=== PATIENT | male | born 1960 | race African-American/Black ===

== ENCOUNTER 2020-04-02 15:06 | Emergency (ER) | payer OTHER ==
[~2020-04-02] VITALS: Ht 165.1 cm; Wt 77.3 kg
[2020-04-02] MEDS ORDERED: LISI-662 PO (15:09)
[2020-04-02] MEDS ORDERED: ASPI-728 PO (15:09)
[2020-04-02] MEDS ORDERED: LIDOCAINE 5% TRANSDERMAL PATCH TD ONE (15:30)
[2020-04-02 16:38] VITALS: BP 127/79
== END 2020-04-02 16:42 | disposition home or self-care (01) ==
LOC: EMS 15:08
DX: M54.5 Low back pain (principal); I10 Essential (primary) hypertension; V89.2XXA Person injured in unspecified motor-vehicle accident, traffic, initial encounter; Y93.89 Activity, other specified; Y92.488 Other paved roadways as the place of occurrence of the external cause; Y99.8 Other external cause status
CPT/HCPCS: 72100

== ENCOUNTER 2021-11-12 19:35 | Emergency (ER) | payer OTHER ==
[~2021-11-12] VITALS: Ht 165.1 cm; Wt 72.7 kg
[~2021-11-12 19:35] MED LIST: ASPI-1450 PO; LISI-894 PO
[2021-11-12 20:25] LABS: BASOPHILS % (AUTO) 1.5 % (0.0-2.0); EOSINOPHILS % (AUTO) 0.7 % (1.0-6.0); HEMATOCRIT 37.6 % (41-53); HEMOGLOBIN 13.1 g/dL (13.5-17.5); LYMPHOCYTES # (AUTO) 1.3 K/uL (1.0-4.8); LYMPHOCYTES % (AUTO) 37.7 % (22.0-44.0); MEAN CORPUSCULAR HGB CONC 34.9 G/dL (31.0-37.0); MEAN CORPUSCULAR VOLUME 92 fL (80-100); MONOCYTES # (AUTO) 0.2 K/uL (0.1-1.0); MONOCYTES % (AUTO) 6.4 % (2.0-9.0); NEUTROPHILS # (AUTO) 1.8 K/uL (1.8-7.7); NEUTROPHILS % (AUTO) 53.7 % (40.0-70.0); PLATELET COUNT (AUTO) 190 K/uL (150-450); RED BLOOD CELL COUNT(AUTO) 4.09 MIL/uL (4.50-5.90); RED CELL DISTRIBUTION WIDTH 13.9 % (11.5-14.5)
[2021-11-12 20:29] LABS: ANION GAP 14 mmol/L (8-16); CALCIUM, TOTAL 8.9 mg/dL (8.8-10.5); CARBON DIOXIDE 25 mmol/L (22-29); CHLORIDE 105 mmol/L (98-107); CREATININE 0.91 mg/dL (0.60-1.30); GLOMERULAR FILTR. RATE CALC > 60 mL/min (>60); GLUCOSE,RANDOM 112 mg/dL (70-110); POTASSIUM 3.5 mmol/L (3.5-5.1); SODIUM SERUM 144 mmol/L (136-145); UREA NITROGEN, BLOOD 14 mg/dL (7-18)
[2021-11-12 20:33] LABS: INR 1.2 (0.9-1.1); PROTHROMBIN TIME 12.4 SEC (9.4-11.6)
[2021-11-12 20:34] LABS: ALANINE AMINOTRANSFERASE 119 U/L (12-78); ALBUMIN 4.4 g/dL (3.4-5.0); ALKALINE PHOSPHATASE 75 U/L (46-116); ASPARTATE AMINOTRANSFERASE 83 U/L (15-37); BILIRUBIN,TOTAL 4.3 mg/dL (0.1-1.0); TOTAL PROTEIN, SERUM 7.8 g/dL (6.4-8.2)
[2021-11-12 20:38] LABS: APPEARANCE,URINE CLEAR (CLEAR); BILIRUBIN,URINE NEGATIVE (NEGATIVE); GLUCOSE, URINE (UA) NEGATIVE (NEGATIVE); KETONES,URINE NEGATIVE (NEGATIVE); LEUKOCYTE ESTERASE ,URINE NEGATIVE (NEGATIVE); NITRATE,URINE NEGATIVE (NEGATIVE); OCCULT BLOOD,URINE LARGE (NEGATIVE); PH,URINE 5.5 (5.0-8.0); PROTEIN,URINE TRACE mg/dL (NEGATIVE); SPECIFIC GRAVITIY, URINE 1.013 (1.003-1.030)
[2021-11-12 20:52] LABS: BACTERIA,URINE None Seen /HPF (None Seen); RBC,URINE 51-100 /HPF (0-2); WBC,URINE 0-2 /HPF (0-5)
[2021-11-12] MEDS ORDERED: POLY10DR3 OU (21:49)
[2021-11-12 22:22] VITALS: BP 130/70
== END 2021-11-12 22:43 | disposition home or self-care (01) ==
LOC: EMS 19:36
DX: M54.50 Low back pain, unspecified (principal); H10.9 Unspecified conjunctivitis; R31.9 Hematuria, unspecified; I10 Essential (primary) hypertension; F17.210 Nicotine dependence, cigarettes, uncomplicated; G89.29 Other chronic pain; Z79.82 Long term (current) use of aspirin; Z79.899 Other long term (current) drug therapy
CPT/HCPCS: 74176; 80053; 81001; 85025; 85610; 99284